=== PATIENT | female | born 1990 | race African-American/Black ===

== ENCOUNTER 2023-09-11 14:54 | Inpatient (IN) | payer OTHER ==
[2023-09-11] MEDS: Lactated Ringer's 1,000 ML IV SCH ×2 (15:26→16:37)
[2023-09-11 15:41] VITALS: BMI 33.7
[2023-09-11] MEDS ORDERED: Diphenoxylate HCl/Atropine Tablet PO PRN (15:52)
[2023-09-11] MEDS ORDERED: Tranexamic Acid 1,000 MG/10 ML VIAL IVP PRN (15:52)
[2023-09-11] MEDS ORDERED: Bicitra 30 ML UDCUP PO PRN (15:52)
[2023-09-11] MEDS ORDERED: Methylergonovine 0.2 MG/ML VIAL IM PRN (15:52)
[2023-09-11] MEDS ORDERED: Ondansetron PF 4 MG/2 ML Vial IVP PRN ×6 (15:52→21:01)
[2023-09-11] MEDS ORDERED: Promethazine HCl 25 MG/ML VIAL IM PRN ×4 (15:52→21:01)
[2023-09-11] MEDS ORDERED: Famotidine/PF 20 mg/2ml Vial SLOW IVP PRN (15:52)
[2023-09-11] MEDS ORDERED: hydrALAZINE 20 MG/ML VIAL SLOW IVP PRN ×2 (15:52→21:01)
[2023-09-11] MEDS ORDERED: Misoprostol 200 MCG TAB PR PRN (15:52)
[2023-09-11] MEDS ORDERED: Carboprost 250 MCG/ML AMP IM PRN (15:52)
[2023-09-11] MEDS ORDERED: Oxytocin 30 units/NS 500 ML 500 ML IV SCH (16:00)
[2023-09-11] MEDS ORDERED: CEFAZOLIN 2 GM in Sodium Chloride 0.9% 100 ML IVPB SCH (16:00)
[2023-09-11 16:13] LABS: Hematocrit 28.7 % (34.9-44.5); Hemoglobin 9.2 g/dL (12.0-15.5); Mean Corpuscular HGB CONC 32.1 g/dL (32.0-36.0); Mean Corpuscular Hemoglobin 27.5 pg (27.0-33.0); Mean Corpuscular Volume 85.7 fl (81.6-98.3); Mean Platelet Volume 10.3 fl (7.4-10.4); Platelet Count 229 10x3/uL (150-450); Red Blood Cell (RBC) Count 3.35 10x6/uL (3.90-5.03); White Blood Cell (WBC) Count 8.5 10x3/uL (3.5-10.5)
[2023-09-11] MEDS ORDERED: Moisturizing Cream (Eucerin) 113 GM JAR TOP PRN ×2 (16:36→20:12)
[2023-09-11] MEDS ORDERED: Naloxone HCl 0.4 mg/ml Vial IV PRN ×2 (16:36→20:12)
[2023-09-11] MEDS ORDERED: Promethazine HCl 25 MG SUPP PR PRN ×2 (16:36→20:12)
[2023-09-11] MEDS ORDERED: Naloxone HCl 0.4 mg/ml Vial IVP PRN ×4 (16:36→20:12)
[2023-09-11] MEDS ORDERED: Meperidine HCl/PF 25 MG (1 mL) VIAL SLOW IVP PRN ×2 (16:36→20:12)
[2023-09-11] MEDS ORDERED: diphenhydrAMINE 50 MG/ML VIAL IVP PRN ×2 (16:36→20:12)
[2023-09-11] MEDS ORDERED: HYDROmorphone 0.5 MG/0.5 ML SYRINGE SLOW IVP PRN ×2 (16:36→20:12)
[2023-09-11] MEDS ORDERED: Ketorolac Tromethamine 30 MG (1 mL) VIAL IVP PRN ×2 (16:36→20:12)
[2023-09-11] MEDS ORDERED: fentaNYL 50 mcg/mL 1 mL Vial SLOW IVP PRN ×2 (16:36→20:12)
[2023-09-11 16:39] LABS: Syphilis Antibody Nonreactive (Nonreactive); Syphilis Antibody Index 0.03 S/CO (<1.00 Non-Reactive)
[2023-09-11 16:40] LABS: HBSAg Index 0.18 S/CO (0-0.99); Hep B Surf Ag - L&D Non-Reactive S/CO (NonReactive)
[2023-09-11] MEDS ORDERED: Dexamethasone 4 mg/ml Vial ONE (16:44)
[2023-09-11] MEDS ORDERED: fentaNYL 50 mcg/mL 1 mL Vial ONE (16:44)
[2023-09-11] MEDS ORDERED: Phenylephrine 40 MG/NS 250 ML 250 ML ONE (16:44)
[2023-09-11] MEDS ORDERED: Ondansetron PF 4 MG/2 ML Vial ONE (16:44)
[2023-09-11] MEDS ORDERED: Morphine PF 10 MG/10 ML VIAL ONE (16:44)
[2023-09-11] MEDS ORDERED: Oxytocin 10 UNITS/ML VIAL ONE ×2 (16:44→18:01)
[2023-09-11] MEDS ORDERED: Communication Order-Pharmacy FS SCH ×2 (16:45→20:15)
[2023-09-11] MEDS ORDERED: Ketorolac Tromethamine 30 MG (1 mL) VIAL IVP SCH ×2 (16:45→20:15)
[2023-09-11 16:53] LABS: Creatinine, Urine 153.74 mg/dL (47-110)
[2023-09-11] MEDS ORDERED: Hepatitis B Vaccine 10 MCG/0.5 ML SYR ONE (17:07)
[2023-09-11] MEDS ORDERED: Erythromycin Base 0.5% Oint 1 GM TUBE ONE (17:07)
[2023-09-11] MEDS ORDERED: Phytonadione Neonatal 1 MG/0.5 ML AMP ONE (17:07)
[2023-09-11] MEDS ORDERED: ePHEDrine Sulfate 50 MG/10 ML VIAL ONE (17:35)
[2023-09-11] MEDS ORDERED: Ketorolac Tromethamine 30 MG (1 mL) VIAL ONE (18:15)
[2023-09-11] MEDS ORDERED: Boostrix 0.5 ML (Tdap) VIAL (>/=7 yrs of age) IM ONE (21:01)
[2023-09-11] MEDS ORDERED: Lanolin Ointment 7 GM TUBE TOP PRN (21:01)
[2023-09-11] MEDS ORDERED: Bisacodyl 10 MG SUPP PR PRN (21:01)
[2023-09-11] MEDS: Docusate 100 MG CAP PO SCH (22:20)
[2023-09-11] MEDS: Ferrous Sulfate 325 MG TAB PO SCH (22:21)
[2023-09-11] MEDS ORDERED: cloNIDine 0.1 MG TAB PO PRN (22:28)
[2023-09-11] MEDS ORDERED: NIFEdipine XL 60 MG ER.TAB PO SCH (22:30)
[2023-09-12] MEDS: Ketorolac Tromethamine 30 MG (1 mL) VIAL IVP SCH ×3 (02:51→14:05)
[2023-09-12] MEDS: diphenhydrAMINE 25 MG CAP PO PRN ×3 (02:56→20:29)
[2023-09-12 04:21] LABS: Hematocrit 24.7 % (34.9-44.5); Hemoglobin 8.1 g/dL (12.0-15.5); Mean Corpuscular HGB CONC 32.8 g/dL (32.0-36.0); Mean Corpuscular Hemoglobin 27.9 pg (27.0-33.0); Mean Corpuscular Volume 85.2 fl (81.6-98.3); Mean Platelet Volume 10.2 fl (7.4-10.4); Platelet Count 189 10x3/uL (150-450); RBC Distribution Width 12.9 % (11.5-14.5); White Blood Cell (WBC) Count 14.7 10x3/uL (3.5-10.5)
[2023-09-12] MEDS: Ferrous Sulfate 325 MG TAB PO SCH ×2 (09:09→20:29)
[2023-09-12] MEDS: Docusate 100 MG CAP PO SCH ×2 (09:09→20:28)
[2023-09-12] MEDS: Prenatal Vitamin 1 TAB PO SCH (09:09)
[2023-09-12] MEDS: NIFEdipine XL 60 MG ER.TAB PO SCH (09:10)
[2023-09-12] MEDS: HYDROcodone/Acetaminophen 5/325 mg Tablet PO PRN ×2 (12:41→22:24)
[2023-09-12] MEDS: Ibuprofen 800 MG TAB PO SCH (20:29)
[2023-09-13] MEDS: Ibuprofen 800 MG TAB PO SCH ×3 (05:09→21:18)
[2023-09-13] MEDS: diphenhydrAMINE 25 MG CAP PO PRN ×4 (06:46→18:28)
[2023-09-13] MEDS: HYDROcodone/Acetaminophen 5/325 mg Tablet PO PRN ×5 (06:46→23:15)
[2023-09-13] MEDS: Prenatal Vitamin 1 TAB PO SCH (08:43)
[2023-09-13] MEDS: Docusate 100 MG CAP PO SCH ×2 (08:43→21:18)
[2023-09-13] MEDS: Ferrous Sulfate 325 MG TAB PO SCH ×2 (08:43→21:18)
[2023-09-13] MEDS: NIFEdipine XL 60 MG ER.TAB PO SCH (08:44)
[2023-09-14] MEDS: Simethicone Chewable 80 MG TAB PO PRN ×4 (04:12→20:08)
[2023-09-14] MEDS: HYDROcodone/Acetaminophen 5/325 mg Tablet PO PRN ×4 (04:13→20:08)
[2023-09-14] MEDS: Ibuprofen 800 MG TAB PO SCH ×3 (05:38→21:43)
[2023-09-14] MEDS: Docusate 100 MG CAP PO SCH ×2 (08:00→21:42)
[2023-09-14] MEDS: Prenatal Vitamin 1 TAB PO SCH (08:00)
[2023-09-14] MEDS: Ferrous Sulfate 325 MG TAB PO SCH ×2 (08:00→21:43)
[2023-09-14] MEDS: NIFEdipine XL 60 MG ER.TAB PO SCH (08:02)
[2023-09-15] MEDS: HYDROcodone/Acetaminophen 5/325 mg Tablet PO PRN ×3 (00:25→08:32)
[2023-09-15] MEDS: Simethicone Chewable 80 MG TAB PO PRN ×3 (00:25→13:25)
[2023-09-15] MEDS: Ibuprofen 800 MG TAB PO SCH ×2 (05:07→13:26)
[2023-09-15 07:57] VITALS: BP 133/80; TEMP 97.9
[2023-09-15] MEDS: Ferrous Sulfate 325 MG TAB PO SCH (08:31)
[2023-09-15] MEDS: Prenatal Vitamin 1 TAB PO SCH (08:31)
[2023-09-15] MEDS: NIFEdipine XL 60 MG ER.TAB PO SCH (08:32)
[2023-09-15] MEDS: Docusate 100 MG CAP PO SCH (08:32)
== END 2023-09-15 13:30 | disposition home or self-care (01) | DRG 788 ==
LOC: CSHLD 14:54 → CSHPP 21:27
PROVIDERS: ADMIT Family Medicine; ATTEND Family Medicine
PROC: 10D00Z1 Extraction of Products of Conception, Low, Open Approach (ICD-10-PCS; principal; 2023-09-11)
DX: O34.211 Maternal care for low transverse scar from previous cesarean delivery (principal); O13.4 Gestational [pregnancy-induced] hypertension without significant proteinuria, complicating childbirth; Z3A.37 37 weeks gestation of pregnancy; Z37.0 Single live birth; O99.892 Other specified diseases and conditions complicating childbirth; N73.6 Female pelvic peritoneal adhesions (postinfective); Z88.0 Allergy status to penicillin
CPT/HCPCS: 36415; 51702; 82570; 84156; 85027; 86780; 86850; 86900; 86901; 87340; J1100; J1885; J2175; J2274; J2405; J2590; J3010; J3490; J7120; S0028